=== PATIENT | female | born 1965 | race Caucasian/White ===

== ENCOUNTER → 2019-12-27 12:41 | Outpatient (CLI) | payer BC, SELFPAY ==
--- NOTE | 2019-12-27 12:47 | DI.MRI.S_ITS ---
PROCEDURE: MR CERVICAL SPINE WO CON INDICATIONS: Radiculopathy, cervical region TECHNIQUE: Noncontrast sagittal T1 spin echo and T2 fast spin echo, sagittal STIR, foraminal oblique sagittal T2 fast spin echo, and axial gradient echo or T2 fast spin echo through the cervical spine. COMPARISON: None. FINDINGS: Image quality: Excellent. Alignment and Curvature: There is reversal of normal cervical curvature with apex at C5-6. There is trace retrolisthesis of C5 on C6, C6 on C7. Bone Marrow: Marrow demonstrates normal overall signal. Spinal Cord: Visualized spinal cord has normal size and signal. No cerebellar tonsillar herniation. Paraspinous Soft Tissues: No paravertebral masses. Prevertebral soft tissues are normal in thickness. Discs: Moderate to severe desiccation is present at C5-6, moderate at C6-7 and mild to moderate throughout the remainder of the cervical spine. C2-C3: Minimal disc bulge without spinal stenosis or foraminal narrowing. Mild uncovertebral hypertrophy. C3-C4: Mild disc bulge with mild spinal stenosis. Minimal right foraminal narrowing with uncovertebral hypertrophy. C4-C5: Mild disc bulge with [id number] spinal stenosis. Mild right foraminal narrowing with uncovertebral hypertrophy. C5-C6: Mild disc bulge with moderate to severe spinal stenosis. Moderate to severe bilateral foraminal narrowing with uncovertebral hypertrophy. C6-C7: Mild disc bulge with moderate spinal stenosis. Moderate left and mild to moderate foraminal narrowing with uncovertebral hypertrophy. C7-T1: No disc bulge, spinal stenosis or foraminal narrowing. IMPRESSION: 1. Multilevel disc bulges. 2. Spinal stenosis most significant at C5-6 secondary to disc bulge. 3. Foraminal narrowing most notable at C5-6 secondary to uncovertebral arthropathy. Dictated by: Yary Pelayo M.D. on 12/29/2019 at 12:33 Approved by: Yary Pelayo M.D. on 12/29/2019 at 13:01
== END ==
PROVIDERS: PCP Family Medicine; Referring Provider Family Medicine; Visit Provider Family Medicine
DX: M50.11 Cervical disc disorder with radiculopathy, high cervical region (principal); M48.02 Spinal stenosis, cervical region; M47.22 Other spondylosis with radiculopathy, cervical region
CPT/HCPCS: 72141